=== PATIENT | male | born 1940 | race Caucasian/White ===

== ENCOUNTER 2020-03-29 20:25 | Inpatient (IN) | payer MEDICARE, BC ==
[~2020-03-29 20:25] MED LIST: Iopamidol-370 76% 500 ML 1 ML ONE
[2020-03-29 21:10] LABS: #Lymphocytes 0.7 thou/uL (1.20-3.40); #Monocytes 0.6 thou/uL (0.11-0.59); #Neutrophils 6.9 thou/uL (1.40-6.50); %Basophils 0.1 % (0.0-1.0); %Eosinophils 0.3 % (0.0-10.0); %Monocytes 6.9 % (0.0-10.0); %Neutrophils 83.8 % (42.0-75.0); Hemoglobin 13.8 g/dL (14.0-18.0); Mean Corpuscular HGB CONC 33.8 g/dL (32.0-36.0); Mean Corpuscular Hemoglobin 34.4 pg (27.0-31.0); Mean Platelet Volume 8.1 fL (7.4-10.4); Platelet Count 135 thou/uL (130-400); RBC Distribution Width 12.2 % (11.5-14.5); Red Blood Cell (RBC) Count 4.02 mill/uL (4.70-6.10); White Blood Cell (WBC) Count 8.2 thou/uL (4.8-10.8)
[2020-03-29 21:16] LABS: PTT 34.7 sec (22.9-36.1); Prothrombin Time 13.5 sec (12.0-14.7)
[2020-03-29 21:17] LABS: D-Dimer Test 0.79 *mcg/mL (0.27-0.43)
[2020-03-29] MEDS ORDERED: Dexamethasone 4 mg/ml Vial ONE (22:04)
[2020-03-29] MEDS ORDERED: Dexamethasone 4 MG TAB ONE (22:04)
[2020-03-29] MEDS ORDERED: Azithromycin 500 MG VIAL ONE (22:04)
[2020-03-29] MEDS ORDERED: cefTRIAXone\\ROCEPHIN 2 GM VIAL ONE (22:04)
[2020-03-29] MEDS ORDERED: Acetaminophen 500 MG TAB ONE (22:04)
[2020-03-29 22:17] LABS: SARS-CoV-2 NAA Rapid Test DETECTED (NotDetected)
[2020-03-29 22:35] LABS: ALT (SGPT) 24 U/L (8-55); AST (SGOT) 43 U/L (5-34); Albumin 3.3 g/dL (3.4-4.8); Alkaline Phosphatase 60 U/L (40-110); Anion Gap 15 mmol/L (10-20); BUN (Urea Nitrogen) 18 mg/dL (8.4-25.7); Bilirubin, Total 0.3 mg/dL (0.2-1.2); Calc. Creatinine Clearance 0 mL/min (70-130); Calcium 8.7 mg/dL (7.8-10.44); Carbon Dioxide 23 mmol/L (23-31); Chloride 104 mmol/L (98-107); Globulin 3.8 g/dL (2.4-3.5); Glucose 133 mg/dL (83-110); Potassium 3.6 mmol/L (3.5-5.1); Protein, Total 7.1 g/dL (5.8-8.1); Sodium 138 mmol/L (136-145)
[2020-03-30 00:43] VITALS: BMI 33.0
[2020-03-30 01:06] LABS: Lactic Acid 1.3 mmol/L (0.5-2.2)
[2020-03-30] MEDS ORDERED: Morphine 2 MG/ML VIAL SLOW IVP PRN (04:56)
[2020-03-30] MEDS ORDERED: hydrALAZINE 20 MG/ML VIAL SLOW IVP PRN (04:56)
[2020-03-30] MEDS ORDERED: cloNIDine 0.1 MG TAB PO PRN (04:56)
[2020-03-30] MEDS ORDERED: HYDROcodone/Acetaminophen 5/325 mg Tablet PO PRN (04:56)
[2020-03-30] MEDS ORDERED: Ondansetron PF 4 MG/2 ML Vial IVP PRN (04:56)
[2020-03-30] MEDS ORDERED: Labetalol HCl 100 MG/20 ML VIAL SLOW IVP PRN (04:56)
[2020-03-30] MEDS ORDERED: Promethazine HCl 12.5 MG in Sodium Chloride 0.9% 50 ML IVPB PRN (04:56)
[2020-03-30] MEDS ORDERED: Guaifenesin DM 100-10/5 ML UDCUP PO PRN (04:56)
[2020-03-30] MEDS ORDERED: Acetaminophen 325 MG TAB PO PRN (04:56)
[2020-03-30] MEDS ORDERED: Electrolyte Replacement Protocol 1 EACH FS SCH (05:00)
[2020-03-30] MEDS ORDERED: Albuterol 200 PUFF (6.7GM INHALER) INH PRN (05:31)
[2020-03-30] MEDS: Levothyroxine Sodium 112 MCG TAB PO SCH (06:17)
[2020-03-30] MEDS: Levothyroxine Sodium 25 MCG TAB PO SCH (06:17)
[2020-03-30] MEDS ORDERED: Mometasone 100 MCG/Formoterol 5 MCG 120 PUFF INHALER INH SCH (06:30)
[2020-03-30] MEDS ORDERED: Mometasone 200 MCG/Formoterol 5 MCG 120 PUFF INHALER INH SCH (06:30)
[2020-03-30] MEDS ORDERED: sulfaSALAzine 500 MG TAB PO SCH (09:00)
[2020-03-30] MEDS ORDERED: Non-Formulary Item 1 EACH (Tiotropium Bromide [Spiriva] 18 MCG Cap.W.Dev) INH SCH (09:00)
[2020-03-30] MEDS: Furosemide 20 MG TAB PO SCH ×2 (09:17→20:56)
[2020-03-30] MEDS: Famotidine 20 MG TAB PO SCH ×2 (09:17→20:55)
[2020-03-30] MEDS: Aspirin 325 mg Enteric Coated Tablet PO SCH (09:17)
[2020-03-30] MEDS: Zinc Sulfate 220 MG CAP PO SCH (09:17)
[2020-03-30] MEDS: Polyethylene Glycol 3350 17 GM Packet PO SCH (09:18)
[2020-03-30] MEDS: Cholecalciferol 1,000 UNITS (25 MCG) TAB PO SCH (09:18)
[2020-03-30] MEDS: Ascorbic Acid 500 mg Chewable Tablet PO SCH (09:18)
[2020-03-30] MEDS: Heparin 5,000 UNITS/ML VIAL SC SCH ×2 (09:18→20:57)
[2020-03-30] MEDS: Losartan 25 MG TAB PO SCH (09:18)
[2020-03-30] MEDS ORDERED: Gabapentin 300 MG CAP PO SCH (21:00)
[2020-03-30] MEDS ORDERED: Dutasteride 0.5 MG CAP PO SCH (21:00)
[2020-03-30] MEDS ORDERED: Montelukast Sodium 10 mg Tablet PO SCH (21:00)
[2020-03-30] MEDS ORDERED: Atorvastatin Calcium 20 MG TAB PO SCH (21:00)
[2020-03-30] MEDS ORDERED: Tamsulosin HCl 0.4 MG CAP PO SCH (21:00)
[2020-03-30] MEDS ORDERED: cefTRIAXone\\ROCEPHIN 1 GM in Sodium Chloride 0.9% 100 ML IVPB SCH (22:00)
[2020-03-30] MEDS ORDERED: Dexamethasone 4 mg/ml Vial SLOW IVP SCH (22:00)
[2020-03-30] MEDS ORDERED: Azithromycin 500 MG in Sodium Chloride 0.9% 250 ML 250 ML IVPB SCH (22:00)
[2020-03-30] MEDS ORDERED: Azithromycin 500 MG in Syringe 0 ML IVPB SCH (22:00)
[2020-03-31] MEDS: Levothyroxine Sodium 25 MCG TAB PO SCH (06:09)
[2020-03-31] MEDS: Levothyroxine Sodium 112 MCG TAB PO SCH (06:09)
[2020-03-31 06:11] LABS: #Lymphocytes 0.9 thou/uL (1.20-3.40); #Neutrophils 11.4 thou/uL (1.40-6.50); %Basophils 0.1 % (0.0-1.0); %Eosinophils 0.1 % (0.0-10.0); %Lymphocytes 6.6 % (21.0-51.0); %Monocytes 7.6 % (0.0-10.0); %Neutrophils 85.6 % (42.0-75.0); Hemoglobin 13.2 g/dL (14.0-18.0); Mean Corpuscular HGB CONC 33.4 g/dL (32.0-36.0); Mean Corpuscular Hemoglobin 33.9 pg (27.0-31.0); Platelet Count 156 thou/uL (130-400); RBC Distribution Width 12.4 % (11.5-14.5); White Blood Cell (WBC) Count 13.4 thou/uL (4.8-10.8)
[2020-03-31 06:40] LABS: Anion Gap 14 mmol/L (10-20); BUN (Urea Nitrogen) 23 mg/dL (8.4-25.7); Calc. Creatinine Clearance 129 mL/min (70-130); Calcium 8.6 mg/dL (7.8-10.44); Carbon Dioxide 25 mmol/L (23-31); Chloride 109 mmol/L (98-107); Glucose 163 mg/dL (83-110); Potassium 3.7 mmol/L (3.5-5.1); Sodium 144 mmol/L (136-145)
[2020-03-31 08:23] VITALS: BP 155/71
[2020-03-31] MEDS ORDERED: Morphine 2 MG/ML VIAL SLOW IVP PRN (08:30)
[2020-03-31] MEDS: Cholecalciferol 1,000 UNITS (25 MCG) TAB PO SCH ×2 (09:02→09:03)
[2020-03-31] MEDS: Losartan 25 MG TAB PO SCH (09:03)
[2020-03-31] MEDS: Zinc Sulfate 220 MG CAP PO SCH (09:03)
[2020-03-31] MEDS: Furosemide 20 MG TAB PO SCH (09:03)
[2020-03-31] MEDS: Famotidine 20 MG TAB PO SCH (09:03)
[2020-03-31] MEDS: Ascorbic Acid 500 mg Chewable Tablet PO SCH (09:03)
[2020-03-31] MEDS: Aspirin 325 mg Enteric Coated Tablet PO SCH (09:03)
[2020-03-31] MEDS: Polyethylene Glycol 3350 17 GM Packet PO SCH (09:04)
[2020-03-31] MEDS: Heparin 5,000 UNITS/ML VIAL SC SCH (09:04)
[2020-03-31 09:12] LABS: Base Excess (BEa) 2.5 mEq/L (-2.0 to +3.0); CO2 Tension 41.2 mmHg (35.0-45.0); Calcium, Ionized (arterial) 1.16 mmol/L (1.12-1.30); Carboxyhemoglobin (COHb) 1.2 gm% (0.0-3.0); Hemoglobin (Hb) 14.1 g/dL (14.0-18.0); Potassium - ABG Lab 3.63 mmol/L (3.70-5.30); pH, Arterial 7.43 (7.35-7.45)
[2020-03-31 09:14] LABS: O2 Tension (PaO2), arterial 46.3 mmHg (> 70.0)
[2020-03-31 09:15] LABS: Puncture Site LRA
[2020-03-31] MEDS ORDERED: Colchicine 0.6 MG TAB PO SCH ×2 (09:15→17:00)
[2020-03-31] MEDS: Roflumilast [Daliresp] 500 MCG Tablet PO SCH ×2 (10:47→10:48)
[2020-03-31 12:21] VITALS: TEMP 98.6
[2020-03-31] MEDS ORDERED: Enoxaparin Sodium 40 MG/0.4 ML SYRINGE SC SCH (21:00)
== END 2020-03-31 16:30 | disposition short-term general hospital (02) | DRG 177 ==
LOC: ERS 20:25 → T4-B 23:29
PROVIDERS: ADMIT Internal Medicine; ATTEND Internal Medicine
DX: U07.1 COVID-19 (principal); J96.21 Acute and chronic respiratory failure with hypoxia; J12.82 Pneumonia due to coronavirus disease 2019; J44.1 Chronic obstructive pulmonary disease with (acute) exacerbation; E03.9 Hypothyroidism, unspecified; E78.5 Hyperlipidemia, unspecified; I10 Essential (primary) hypertension; F41.9 Anxiety disorder, unspecified; F32.9 Major depressive disorder, single episode, unspecified; M19.90 Unspecified osteoarthritis, unspecified site; Z88.8 Allergy status to other drugs, medicaments and biological substances; Z79.82 Long term (current) use of aspirin; Z79.51 Long term (current) use of inhaled steroids; Z79.899 Other long term (current) drug therapy; Z99.81 Dependence on supplemental oxygen
CPT/HCPCS: 0240U; 36415; 36600; 71045; 71275; 80048; 80053; 82805; 83605; 83735; 84484; 85025; 85379; 85610; 85730; 86140; 87040; 87149; 93005; 94660; 96365; 96367; 96375; J0456; J0696; J1100; J1644; J2270; J2405; J3490; J7050; J8540; Q9967